=== PATIENT | male | born 1960 | race Caucasian/White ===

== ENCOUNTER 2018-05-14 13:20 | Outpatient (CLI) | payer OTHER ==
[2018-05-14 14:05] LABS: BASOPHILS # (AUTO) 0.1 K/uL (0.00-0.22); EOSINOPHILS # (AUTO) 0.2 K/uL (0-0.4); EOSINOPHILS % (AUTO) 2.4 % (0.0-4.0); HEMATOCRIT 46.7 % (36-52); HEMOGLOBIN 15.8 g/dL (12.0-18.0); LYMPHOCYTES # (AUTO) 1.8 K/uL (2.0-11.5); LYMPHOCYTES % (AUTO) 21.1 % (20.5-51.1); MEAN CORPUSCULAR HEMOGLOBIN 27 pg (27-31); MEAN CORPUSCULAR HGB CONC 34 g/dL (33-37); MEAN CORPUSCULAR VOLUME 80.6 fL (80-94); MONOCYTES # (AUTO) 0.4 K/uL (0.8-1.0); MONOCYTES % (AUTO) 4.2 % (1.7-9.3); NEUTROPHILS # (AUTO) 6.1 K/uL (1.8-7.7); NEUTROPHILS % (AUTO) 71.3 % (42.2-75.2); PLATELET COUNT (AUTO) 269 K/uL (140-450); RED BLOOD CELL COUNT(AUTO) 5.79 MIL/uL (4.20-6.10); RED CELL DISTRIBUTION WIDTH 13.7 % (11.6-13.7); WHITE BLOOD COUNT (AUTO) 8.6 K/uL (4.8-10.8)
[2018-05-14 14:36] LABS: ALBUMIN 3.8 g/dL (3.4-5.0); ANION GAP 12.9 (8-16); CARBON DIOXIDE 27.2 mmol/L (21-32); CREATININE 0.9 mg/dL (0.7-1.3); POTASSIUM 4.1 mmol/L (3.5-5.1); TOTAL BILIRUBIN 1.1 mg/dL (0.0-1.0)
[2018-05-14 15:16] LABS: CHOL/HDL RATIO 6.1 (1-4.5)
== END 2018-05-14 19:49 | disposition home or self-care (01) ==
LOC: MLB 13:20
PROVIDERS: ATTEND Student in an Organized Health Care Education/Training Program
DX: Z00.01 Encounter for general adult medical examination with abnormal findings (principal); E11.9 Type 2 diabetes mellitus without complications; R03.0 Elevated blood-pressure reading, without diagnosis of hypertension
CPT/HCPCS: 36415; 80053; 83036; 85025

== ENCOUNTER 2018-07-26 13:53 | Inpatient (IN) | payer OTHER ==
[~2018-07-26] VITALS: Ht 177.8 cm; Wt 93.0 kg
[2018-07-26 13:53] VITALS: BP 175/109
[2018-07-26 14:30] LABS: BASOPHILS # (AUTO) 0.1 K/uL (0.00-0.22); BASOPHILS % (AUTO) 0.8 % (0.0-2.0); EOSINOPHILS # (AUTO) 0.1 K/uL (0-0.4); HEMATOCRIT 46.3 % (36-52); HEMOGLOBIN 15.6 g/dL (12.0-18.0); LYMPHOCYTES # (AUTO) 1.5 K/uL (2.0-11.5); LYMPHOCYTES % (AUTO) 14.4 % (20.5-51.1); MEAN CORPUSCULAR HEMOGLOBIN 27 pg (27-31); MEAN CORPUSCULAR HGB CONC 34 g/dL (33-37); MEAN CORPUSCULAR VOLUME 80.5 fL (80-94); MONOCYTES # (AUTO) 0.6 K/uL (0.8-1.0); MONOCYTES % (AUTO) 5.8 % (1.7-9.3); NEUTROPHILS # (AUTO) 8.1 K/uL (1.8-7.7); PLATELET COUNT (AUTO) 245 K/uL (140-450); RED BLOOD CELL COUNT(AUTO) 5.75 MIL/uL (4.20-6.10); RED CELL DISTRIBUTION WIDTH 13.4 % (11.6-13.7); WHITE BLOOD COUNT (AUTO) 10.4 K/uL (4.8-10.8)
[2018-07-26] MEDS ORDERED: ASPIRIN 325 MG TABEC PO SCH (14:50)
[2018-07-26 14:57] LABS: ANION GAP 13.7 (8-16); CARBON DIOXIDE 26.3 mmol/L (21-32)
[2018-07-26 15:02] LABS: ALBUMIN 3.6 g/dL (3.4-5.0); TOTAL BILIRUBIN 1.2 mg/dL (0.0-1.0)
[2018-07-26 15:05] LABS: APPEARANCE,URINE CLEAR (CLEAR); BILIRUBIN,URINE NEGATIVE (NEGATIVE); BLOOD, URINE NEGATIVE (NEGATIVE); COLOR,URINE YELLOW (YELLOW); LEUKOCYTE ESTERASE ,URINE NEGATIVE (NEGATIVE); NITRITE, URINE NEGATIVE (NEGATIVE); UGLUCOSE >=1000 (NEGATIVE)
[2018-07-26 15:07] LABS: PROTHROMBIN TIME 9.9 secs (10.8-13.4)
[2018-07-26 15:53] LABS: BARBITURATE, URINE NEG. ng/ml (NEG <=200); BENZODIAZEPINE, URINE NEG. ng/mL (NEG <=200); CANNABINOID, URINE NEG. ng/mL (NEG <=50); COCAINE, URINE NEG. ng/mL (NEG <=300); OPIATE, URINE NEG. ng/mL (NEG <=2000); PHENCYCLIDINE SCREEN,URINE NEG. ng/mL (NEG <=25)
[2018-07-26] MEDS ORDERED: METF500T PO (16:41)
[2018-07-26] MEDS ORDERED: LOSA100T1 PO (16:41)
[2018-07-26 17:10] VITALS: BP 162/88
[2018-07-26] MEDS ORDERED: ONDANSETRON 4 MG/2 ML VIAL IVP PRN (17:20)
[2018-07-26] MEDS ORDERED: HYDROmorphone 1 MG/ML AMP IM/IV PRN (17:20)
[2018-07-26] MEDS ORDERED: ACETAMINOPHEN 650 MG/20.3 ML UDC PO PRN (17:20)
[2018-07-26] MEDS ORDERED: LORazepam 2 MG/ML VIAL IM/IVP PRN (17:20)
[2018-07-26] MEDS ORDERED: ZOLPIDEM 5 MG TAB PO PRN (17:20)
[2018-07-26] MEDS ORDERED: DEXTROSE 50% 50 ML SYR IVP PRN (18:10)
[2018-07-26 20:25] VITALS: BP 158/89
[2018-07-26] MEDS: INSULIN LISPRO SLIDING SCALE 100 UNITS/ML VIAL SUBQ PRN (21:34)
[2018-07-26] MEDS: BLOOD GLUCOSE MONITORING 1 DEV DEV FS SCH (21:38)
[2018-07-27 00:36] VITALS: BP 147/83
[2018-07-27 04:00] VITALS: BP 141/84
[2018-07-27] MEDS: BLOOD GLUCOSE MONITORING 1 DEV DEV FS SCH ×2 (05:53→11:30)
[2018-07-27] MEDS: INSULIN LISPRO SLIDING SCALE 100 UNITS/ML VIAL SUBQ PRN (06:00)
[2018-07-27 11:31] VITALS: BP 154/86
== END 2018-07-27 11:58 | disposition short-term general hospital (02) | DRG 66 ==
LOC: MED 13:53 → MTU 16:49 → UNDOADMIN 16:49
PROVIDERS: ADMIT Internal Medicine; ATTEND Internal Medicine
DX: I63.9 Cerebral infarction, unspecified (principal); E78.5 Hyperlipidemia, unspecified; I10 Essential (primary) hypertension; E11.65 Type 2 diabetes mellitus with hyperglycemia; E11.40 Type 2 diabetes mellitus with diabetic neuropathy, unspecified; R47.01 Aphasia; Z79.84 Long term (current) use of oral hypoglycemic drugs; Z79.899 Other long term (current) drug therapy
CPT/HCPCS: 36415; 70450; 71045; 80053; 80305; 81003; 82140; 82948; 84484; 85025; 85610; 85730; 86886; 86900; 86901; 87081; 93005; 93880; 99285; J1815; Q0092

== ENCOUNTER 2018-09-17 09:47 | Outpatient (CLI) | payer OTHER ==
[~2018-09-17 09:47] MED LIST: LOSA100T1 PO; METF500T PO
[2018-09-17 11:38] LABS: ANION GAP 16.7 (8-16); CARBON DIOXIDE 26.5 mmol/L (21-32); CREATININE 0.9 mg/dL (0.7-1.3); POTASSIUM 4.2 mmol/L (3.5-5.1); TOTAL BILIRUBIN 1.2 mg/dL (0.0-1.0)
[2018-09-17 11:39] LABS: ALBUMIN 3.5 g/dL (3.4-5.0)
== END 2018-09-17 21:19 | disposition home or self-care (01) ==
LOC: MLB 09:47
PROVIDERS: ATTEND Family Medicine
DX: E11.65 Type 2 diabetes mellitus with hyperglycemia (principal); E78.00 Pure hypercholesterolemia, unspecified; I10 Essential (primary) hypertension; I63.9 Cerebral infarction, unspecified
CPT/HCPCS: 36415; 80053; 83036

== ENCOUNTER 2018-10-24 10:26 | Outpatient (CLI) | payer OTHER ==
[2018-10-24 11:34] LABS: BASOPHILS # (AUTO) 0.1 K/uL (0.00-0.22); BASOPHILS % (AUTO) 0.7 % (0.0-2.0); EOSINOPHILS # (AUTO) 0.2 K/uL (0-0.4); EOSINOPHILS % (AUTO) 1.3 % (0.0-4.0); HEMATOCRIT 39.5 % (36-52); HEMOGLOBIN 12.7 g/dL (12.0-18.0); LYMPHOCYTES # (AUTO) 1.9 K/uL (2.0-11.5); LYMPHOCYTES % (AUTO) 13.3 % (20.5-51.1); MEAN CORPUSCULAR HEMOGLOBIN 25 pg (27-31); MEAN CORPUSCULAR HGB CONC 32 g/dL (33-37); MEAN CORPUSCULAR VOLUME 78.8 fL (80-94); MONOCYTES # (AUTO) 1.1 K/uL (0.8-1.0); MONOCYTES % (AUTO) 7.9 % (1.7-9.3); NEUTROPHILS # (AUTO) 10.7 K/uL (1.8-7.7); NEUTROPHILS % (AUTO) 76.8 % (42.2-75.2); PLATELET COUNT (AUTO) 511 K/uL (140-450); RED BLOOD CELL COUNT(AUTO) 5.02 MIL/uL (4.20-6.10); RED CELL DISTRIBUTION WIDTH 13.8 % (11.6-13.7)
[2018-10-24 11:39] LABS: APPEARANCE,URINE CLEAR (CLEAR); BILIRUBIN,URINE NEGATIVE (NEGATIVE); BLOOD, URINE NEGATIVE (NEGATIVE); COLOR,URINE YELLOW (YELLOW); LEUKOCYTE ESTERASE ,URINE NEGATIVE (NEGATIVE); NITRITE, URINE NEGATIVE (NEGATIVE); UGLUCOSE NEGATIVE (NEGATIVE)
[2018-10-24 11:55] LABS: ALBUMIN 3.4 g/dL (3.4-5.0); ANION GAP 9.7 (8-16); CARBON DIOXIDE 28.4 mmol/L (21-32); CHOL/HDL RATIO 3.8 (1-4.5); CREATININE 0.9 mg/dL (0.7-1.3); POTASSIUM 4.1 mmol/L (3.5-5.1)
[2018-10-25 09:06] LABS: MICROALBUMIN, UR RANDOM 32.2 ug/mL (Not Estab.)
== END 2018-10-24 17:42 | disposition home or self-care (01) ==
LOC: MLB 10:26
DX: E11.69 Type 2 diabetes mellitus with other specified complication (principal); I10 Essential (primary) hypertension; Z86.73 Personal history of transient ischemic attack (TIA), and cerebral infarction without residual deficits
CPT/HCPCS: 36415; 80053; 81003; 82043; 83036; 84154; 85025

== ENCOUNTER 2018-11-06 15:18 | Outpatient (CLI) | payer OTHER ==
[2018-11-06 15:59] LABS: HEMATOCRIT 38.1 % (36-52); HEMOGLOBIN 12.1 g/dL (12.0-18.0); MEAN CORPUSCULAR HEMOGLOBIN 25 pg (27-31); MEAN CORPUSCULAR HGB CONC 32 g/dL (33-37); MEAN CORPUSCULAR VOLUME 77.9 fL (80-94); PLATELET COUNT (AUTO) 507 K/uL (140-450); RED BLOOD CELL COUNT(AUTO) 4.89 MIL/uL (4.20-6.10); RED CELL DISTRIBUTION WIDTH 14.2 % (11.6-13.7); WHITE BLOOD COUNT (AUTO) 12.6 K/uL (4.8-10.8)
[2018-11-06 16:22] LABS: ALBUMIN 3.6 g/dL (3.4-5.0); ANION GAP 15.6 (8-16); CARBON DIOXIDE 26.3 mmol/L (21-32); CREATININE 0.8 mg/dL (0.7-1.3); POTASSIUM 3.9 mmol/L (3.5-5.1); TOTAL BILIRUBIN 0.7 mg/dL (0.0-1.0)
[2018-11-06 17:31] LABS: BASOPHILS % (MANUAL) 0 % (0-2); EOSINOPHILS % (MANUAL) 0 % (0-4); LYMPHOCYTES % (MANUAL) 16 % (20-46); MONOCYTES % (MANUAL) 6 % (5-12); PLATELET COUNT,MANUAL 510 K/uL (150-450)
[2018-11-09 17:38] LABS: HEPATITIS B SURFACE ANTIBODY NON REACTIVE (NONREACTIVE)
[2018-11-09 17:39] LABS: ALDOLASE SERUM 4.5 U/L (1.2 - 7.6)
[2018-11-09 17:40] LABS: ANTI-NUCLEAR ANTIBODY,DIRECT Positive (Negative)
[2018-11-11 09:52] LABS: HEPATITIS B SURFACE ANTIGEN NEGATIVE (NEGATIVE)
== END 2018-11-06 20:44 | disposition home or self-care (01) ==
LOC: MLB 15:18
DX: M19.011 Primary osteoarthritis, right shoulder (principal); M19.012 Primary osteoarthritis, left shoulder; M79.89 Other specified soft tissue disorders; M17.12 Unilateral primary osteoarthritis, left knee; M79.642 Pain in left hand; M79.641 Pain in right hand; M79.18 Myalgia, other site; I10 Essential (primary) hypertension; E11.9 Type 2 diabetes mellitus without complications
CPT/HCPCS: 36415; 73020; 73080; 73130; 73562; 80053; 82085; 82550; 83520; 83874; 84550; 85025; 85651; 86038; 86140; 86430; 86702; 86706; 86803; 87340

== ENCOUNTER 2018-12-02 12:28 | Outpatient (CLI) | payer OTHER ==
[2018-12-02 13:27] LABS: BASOPHILS # (AUTO) 0.1 K/uL (0.00-0.22); BASOPHILS % (AUTO) 0.6 % (0.0-2.0); EOSINOPHILS # (AUTO) 0.2 K/uL (0-0.4); EOSINOPHILS % (AUTO) 2.3 % (0.0-4.0); HEMATOCRIT 35.2 % (36-52); HEMOGLOBIN 11.3 g/dL (12.0-18.0); LYMPHOCYTES # (AUTO) 1.5 K/uL (2.0-11.5); MEAN CORPUSCULAR HEMOGLOBIN 25 pg (27-31); MEAN CORPUSCULAR HGB CONC 32 g/dL (33-37); MEAN CORPUSCULAR VOLUME 77.4 fL (80-94); MONOCYTES # (AUTO) 0.6 K/uL (0.8-1.0); MONOCYTES % (AUTO) 6.9 % (1.7-9.3); NEUTROPHILS # (AUTO) 6.8 K/uL (1.8-7.7); NEUTROPHILS % (AUTO) 74.2 % (42.2-75.2); PLATELET COUNT (AUTO) 363 K/uL (140-450); RED BLOOD CELL COUNT(AUTO) 4.55 MIL/uL (4.20-6.10); RED CELL DISTRIBUTION WIDTH 15.6 % (11.6-13.7); WHITE BLOOD COUNT (AUTO) 9.1 K/uL (4.8-10.8)
[2018-12-02 13:50] LABS: ALBUMIN 3.4 g/dL (3.4-5.0); CARBON DIOXIDE 26.1 mmol/L (21-32); CREATININE 0.8 mg/dL (0.7-1.3); POTASSIUM 4.1 mmol/L (3.5-5.1); THYROID STIMULATING HORMONE 1.68 uIU/mL (0.34-3.74); TOTAL BILIRUBIN 0.6 mg/dL (0.0-1.0)
[2018-12-03 11:09] LABS: FERRITIN 395 ng/mL (30-400); IMMUNOGLOBULIN A 247 mg/dL (90-386); IMMUNOGLOBULIN G 1259 mg/dL (700-1600); IMMUNOGLOBULIN M 54 mg/dL (20-172)
== END 2018-12-02 20:38 | disposition home or self-care (01) ==
LOC: MLB 12:28
DX: D47.3 Essential (hemorrhagic) thrombocythemia (principal); D72.829 Elevated white blood cell count, unspecified
CPT/HCPCS: 36415; 80053; 82607; 82728; 82746; 83540; 83891; 83900; 83909; 83912; 84165; 84443; 85025; 86334

== ENCOUNTER → 2018-12-13 | Outpatient (CLI) | payer OTHER ==
[2018-12-15 17:56] LABS: BASOPHILS # (AUTO) 0.1 K/uL (0.00-0.22); BASOPHILS % (AUTO) 0.6 % (0.0-2.0); EOSINOPHILS % (AUTO) 0.1 % (0.0-4.0); HEMATOCRIT 36.6 % (36-52); HEMOGLOBIN 11.9 g/dL (12.0-18.0); LYMPHOCYTES % (AUTO) 7.8 % (20.5-51.1); MEAN CORPUSCULAR HEMOGLOBIN 25 pg (27-31); MEAN CORPUSCULAR HGB CONC 33 g/dL (33-37); MEAN CORPUSCULAR VOLUME 76.7 fL (80-94); MONOCYTES # (AUTO) 0.4 K/uL (0.8-1.0); MONOCYTES % (AUTO) 2.9 % (1.7-9.3); NEUTROPHILS # (AUTO) 11.6 K/uL (1.8-7.7); NEUTROPHILS % (AUTO) 88.6 % (42.2-75.2); PLATELET COUNT (AUTO) 460 K/uL (140-450); RED BLOOD CELL COUNT(AUTO) 4.77 MIL/uL (4.20-6.10); WHITE BLOOD COUNT (AUTO) 13.1 K/uL (4.8-10.8)
[2018-12-15 18:09] LABS: ALBUMIN 3.7 g/dL (3.4-5.0); CARBON DIOXIDE 25.1 mmol/L (21-32); CREATININE 0.9 mg/dL (0.7-1.3); POTASSIUM 4.1 mmol/L (3.5-5.1); TOTAL BILIRUBIN 0.6 mg/dL (0.0-1.0)
[2018-12-23 11:02] LABS: HEPATITIS B SURFACE ANTIGEN NEGATIVE (NEGATIVE)
[2018-12-23 11:03] LABS: ACTIN(SMOOTH MUSCLE) AB 12 Units (0 - 19); ANTI DOUBLE STRANDED DNA AB 22 IU/mL (0 - 9); HEPATITIS B SURFACE ANTIBODY NON REACTIVE (NONREACTIVE)
== END | disposition home or self-care (01) ==
LOC: MLB 13:40
DX: M19.90 Unspecified osteoarthritis, unspecified site (principal)
CPT/HCPCS: 36415; 80053; 83516; 83520; 85025; 85651; 86140; 86160; 86235; 86430; 86706; 86803; 87340

== ENCOUNTER 2018-12-15 17:01 | Outpatient (CLI) | payer OTHER | END 2018-12-15 19:59 | disposition home or self-care (01) | LOC: CANPRECLI → MRD 17:01 | DX: Z53.21 Procedure and treatment not carried out due to patient leaving prior to being seen by health care provider (principal) ==

== ENCOUNTER 2019-02-04 13:02 | Outpatient (CLI) | payer OTHER ==
[2019-02-04 13:53] LABS: BASOPHILS # (AUTO) 0.1 K/uL (0.00-0.22); BASOPHILS % (AUTO) 0.5 % (0.0-2.0); EOSINOPHILS % (AUTO) 0.3 % (0.0-4.0); HEMATOCRIT 41.4 % (36-52); HEMOGLOBIN 13.4 g/dL (12.0-18.0); LYMPHOCYTES # (AUTO) 0.9 K/uL (2.0-11.5); LYMPHOCYTES % (AUTO) 7.7 % (20.5-51.1); MEAN CORPUSCULAR HEMOGLOBIN 26 pg (27-31); MEAN CORPUSCULAR HGB CONC 32 g/dL (33-37); MEAN CORPUSCULAR VOLUME 80.5 fL (80-94); MONOCYTES # (AUTO) 0.5 K/uL (0.8-1.0); NEUTROPHILS # (AUTO) 10.1 K/uL (1.8-7.7); NEUTROPHILS % (AUTO) 87.5 % (42.2-75.2); PLATELET COUNT (AUTO) 290 K/uL (140-450); RED BLOOD CELL COUNT(AUTO) 5.14 MIL/uL (4.20-6.10); RED CELL DISTRIBUTION WIDTH 17.7 % (11.6-13.7); WHITE BLOOD COUNT (AUTO) 11.6 K/uL (4.8-10.8)
[2019-02-04 14:18] LABS: ALBUMIN 3.8 g/dL (3.4-5.0); ANION GAP 14.7 (8-16); CARBON DIOXIDE 25.5 mmol/L (21-32); CREATININE 0.9 mg/dL (0.7-1.3); POTASSIUM 4.2 mmol/L (3.5-5.1); TOTAL BILIRUBIN 0.9 mg/dL (0.0-1.0)
== END 2019-02-04 20:14 | disposition home or self-care (01) ==
LOC: MLB 13:02
DX: D50.8 Other iron deficiency anemias (principal); D72.829 Elevated white blood cell count, unspecified
CPT/HCPCS: 36415; 80053; 82728; 83540; 85025

== ENCOUNTER 2019-02-24 11:59 | Outpatient (CLI) | payer OTHER ==
[2019-02-24 12:53] LABS: POTASSIUM 3.8 mmol/L (3.5-5.1)
[2019-02-24 12:54] LABS: CARBON DIOXIDE 27.8 mmol/L (21-32); CREATININE 0.9 mg/dL (0.7-1.3); TOTAL BILIRUBIN 0.7 mg/dL (0.0-1.0)
[2019-02-24 12:55] LABS: ALBUMIN 3.7 g/dL (3.4-5.0)
[2019-02-24 15:59] LABS: WHITE BLOOD COUNT (AUTO) 8.9 K/uL (4.8-10.8)
[2019-02-24 16:00] LABS: HEMATOCRIT 41.2 % (36-52); HEMOGLOBIN 13.5 g/dL (12.0-18.0); MEAN CORPUSCULAR HEMOGLOBIN 27 pg (27-31); MEAN CORPUSCULAR HGB CONC 33 g/dL (33-37); PLATELET COUNT (AUTO) 316 K/uL (140-450); RED BLOOD CELL COUNT(AUTO) 5.09 MIL/uL (4.20-6.10)
[2019-02-24 16:01] LABS: BASOPHILS # (AUTO) 0.1 K/uL (0.00-0.22); BASOPHILS % (AUTO) 0.6 % (0.0-2.0); EOSINOPHILS # (AUTO) 0.1 K/uL (0-0.4); LYMPHOCYTES # (AUTO) 1.6 K/uL (2.0-11.5); LYMPHOCYTES % (AUTO) 17.6 % (20.5-51.1); MONOCYTES # (AUTO) 0.5 K/uL (0.8-1.0); MONOCYTES % (AUTO) 5.8 % (1.7-9.3); NEUTROPHILS # (AUTO) 6.7 K/uL (1.8-7.7)
== END 2019-02-24 20:12 | disposition home or self-care (01) ==
LOC: MLB 11:59
DX: M19.019 Primary osteoarthritis, unspecified shoulder (principal)
CPT/HCPCS: 36415; 80053; 85025; 85651; 86140

== ENCOUNTER 2019-03-31 10:50 | Outpatient (CLI) | payer OTHER ==
[2019-03-31 12:02] LABS: BASOPHILS % (AUTO) 0.5 % (0.0-2.0); EOSINOPHILS # (AUTO) 0.1 K/uL (0-0.4); EOSINOPHILS % (AUTO) 1.5 % (0.0-4.0); HEMATOCRIT 41.5 % (36-52); HEMOGLOBIN 13.9 g/dL (12.0-18.0); LYMPHOCYTES # (AUTO) 1.9 K/uL (2.0-11.5); LYMPHOCYTES % (AUTO) 23.2 % (20.5-51.1); MEAN CORPUSCULAR HEMOGLOBIN 28 pg (27-31); MEAN CORPUSCULAR HGB CONC 33 g/dL (33-37); MEAN CORPUSCULAR VOLUME 83.1 fL (80-94); MONOCYTES # (AUTO) 0.6 K/uL (0.8-1.0); MONOCYTES % (AUTO) 6.9 % (1.7-9.3); NEUTROPHILS # (AUTO) 5.5 K/uL (1.8-7.7); NEUTROPHILS % (AUTO) 67.9 % (42.2-75.2); PLATELET COUNT (AUTO) 281 K/uL (140-450); RED CELL DISTRIBUTION WIDTH 16.4 % (11.6-13.7); WHITE BLOOD COUNT (AUTO) 8.1 K/uL (4.8-10.8)
[2019-03-31 16:04] LABS: CHOL/HDL RATIO 4.3 (1-4.5)
[2019-04-01 09:30] LABS: MICROALBUMIN, UR RANDOM 4.2 ug/mL (Not Estab.)
== END 2019-03-31 20:52 | disposition home or self-care (01) ==
LOC: MLB 10:50
DX: E78.5 Hyperlipidemia, unspecified (principal); E11.9 Type 2 diabetes mellitus without complications; M06.9 Rheumatoid arthritis, unspecified
CPT/HCPCS: 36415; 82043; 83036; 83540; 85025

== ENCOUNTER 2019-05-01 10:23 | Outpatient (CLI) | payer OTHER ==
[2019-05-01 10:56] LABS: BASOPHILS # (AUTO) 0.1 K/uL (0.00-0.22); EOSINOPHILS # (AUTO) 0.2 K/uL (0-0.4); HEMATOCRIT 40.4 % (36-52); HEMOGLOBIN 13.6 g/dL (12.0-18.0); LYMPHOCYTES # (AUTO) 2.1 K/uL (2.0-11.5); LYMPHOCYTES % (AUTO) 20.4 % (20.5-51.1); MEAN CORPUSCULAR HEMOGLOBIN 28 pg (27-31); MEAN CORPUSCULAR HGB CONC 34 g/dL (33-37); MEAN CORPUSCULAR VOLUME 83.1 fL (80-94); MONOCYTES # (AUTO) 0.6 K/uL (0.8-1.0); MONOCYTES % (AUTO) 5.8 % (1.7-9.3); NEUTROPHILS # (AUTO) 7.3 K/uL (1.8-7.7); NEUTROPHILS % (AUTO) 70.8 % (42.2-75.2); PLATELET COUNT (AUTO) 264 K/uL (140-450); RED BLOOD CELL COUNT(AUTO) 4.86 MIL/uL (4.20-6.10); RED CELL DISTRIBUTION WIDTH 15.3 % (11.6-13.7); WHITE BLOOD COUNT (AUTO) 10.3 K/uL (4.8-10.8)
[2019-05-01 11:08] LABS: ALBUMIN 3.8 g/dL (3.4-5.0); CARBON DIOXIDE 29.6 mmol/L (21-32); CREATININE 0.9 mg/dL (0.7-1.3); POTASSIUM 3.6 mmol/L (3.5-5.1); TOTAL BILIRUBIN 1.3 mg/dL (0.0-1.0)
== END 2019-05-01 20:18 | disposition home or self-care (01) ==
LOC: MLB 10:23
DX: M06.00 Rheumatoid arthritis without rheumatoid factor, unspecified site (principal)
CPT/HCPCS: 36415; 80053; 85025; 85651; 86140

== ENCOUNTER 2019-07-01 12:15 | Outpatient (CLI) | payer OTHER ==
[2019-07-01 13:24] LABS: BASOPHILS # (AUTO) 0.1 K/uL (0.00-0.22); BASOPHILS % (AUTO) 0.7 % (0.0-2.0); EOSINOPHILS % (AUTO) 0.3 % (0.0-4.0); HEMATOCRIT 44.1 % (36-52); HEMOGLOBIN 14.6 g/dL (12.0-18.0); LYMPHOCYTES # (AUTO) 1.9 K/uL (2.0-11.5); LYMPHOCYTES % (AUTO) 18.8 % (20.5-51.1); MEAN CORPUSCULAR HEMOGLOBIN 28 pg (27-31); MEAN CORPUSCULAR HGB CONC 33 g/dL (33-37); MEAN CORPUSCULAR VOLUME 85.7 fL (80-94); MONOCYTES # (AUTO) 0.5 K/uL (0.8-1.0); MONOCYTES % (AUTO) 4.8 % (1.7-9.3); NEUTROPHILS # (AUTO) 7.7 K/uL (1.8-7.7); NEUTROPHILS % (AUTO) 75.4 % (42.2-75.2); PLATELET COUNT (AUTO) 255 K/uL (140-450); RED BLOOD CELL COUNT(AUTO) 5.14 MIL/uL (4.20-6.10); RED CELL DISTRIBUTION WIDTH 14.4 % (11.6-13.7); WHITE BLOOD COUNT (AUTO) 10.2 K/uL (4.8-10.8)
[2019-07-01 13:36] LABS: ALBUMIN 3.7 g/dL (3.4-5.0); ANION GAP 12.7 (8-16); CARBON DIOXIDE 26.5 mmol/L (21-32); CREATININE 0.8 mg/dL (0.7-1.3); POTASSIUM 4.2 mmol/L (3.5-5.1); TOTAL BILIRUBIN 1.6 mg/dL (0.0-1.0)
== END 2019-07-01 20:19 | disposition home or self-care (01) ==
LOC: MLB 12:15
DX: M06.00 Rheumatoid arthritis without rheumatoid factor, unspecified site (principal); M19.90 Unspecified osteoarthritis, unspecified site
CPT/HCPCS: 36415; 80053; 85025; 85651; 86140

== ENCOUNTER 2019-07-06 12:04 | Outpatient (CLI) | payer OTHER ==
[2019-07-06 13:10] LABS: ALBUMIN 3.7 g/dL (3.4-5.0); CHOL/HDL RATIO 3.2 (1-4.5); CREATININE 0.9 mg/dL (0.7-1.3); POTASSIUM 4.1 mmol/L (3.5-5.1); TOTAL BILIRUBIN 1.5 mg/dL (0.0-1.0)
[2019-07-06 13:33] LABS: ANION GAP 16.9 (8-16); CARBON DIOXIDE 25.2 mmol/L (21-32)
== END 2019-07-06 20:21 | disposition home or self-care (01) ==
LOC: MLB 12:04
DX: E78.5 Hyperlipidemia, unspecified (principal)
CPT/HCPCS: 36415; 80053

== ENCOUNTER 2019-08-11 11:02 | Outpatient (CLI) | payer OTHER ==
[2019-08-11 11:46] LABS: BASOPHILS # (AUTO) 0.1 K/uL (0.00-0.22); BASOPHILS % (AUTO) 0.9 % (0.0-2.0); EOSINOPHILS # (AUTO) 0.4 K/uL (0-0.4); EOSINOPHILS % (AUTO) 4.1 % (0.0-4.0); HEMATOCRIT 40.8 % (36-52); HEMOGLOBIN 13.5 g/dL (12.0-18.0); LYMPHOCYTES # (AUTO) 1.7 K/uL (2.0-11.5); LYMPHOCYTES % (AUTO) 19.7 % (20.5-51.1); MEAN CORPUSCULAR HEMOGLOBIN 28 pg (27-31); MEAN CORPUSCULAR HGB CONC 33 g/dL (33-37); MEAN CORPUSCULAR VOLUME 85.3 fL (80-94); MONOCYTES # (AUTO) 0.6 K/uL (0.8-1.0); MONOCYTES % (AUTO) 7.2 % (1.7-9.3); NEUTROPHILS # (AUTO) 5.8 K/uL (1.8-7.7); NEUTROPHILS % (AUTO) 68.1 % (42.2-75.2); PLATELET COUNT (AUTO) 277 K/uL (140-450); RED BLOOD CELL COUNT(AUTO) 4.79 MIL/uL (4.20-6.10); WHITE BLOOD COUNT (AUTO) 8.5 K/uL (4.8-10.8)
[2019-08-11 12:07] LABS: ALBUMIN 3.7 g/dL (3.4-5.0); ANION GAP 13.8 (8-16); CARBON DIOXIDE 28.6 mmol/L (21-32); CREATININE 0.8 mg/dL (0.7-1.3); POTASSIUM 4.4 mmol/L (3.5-5.1); TOTAL BILIRUBIN 1.4 mg/dL (0.0-1.0)
== END 2019-08-11 20:55 | disposition home or self-care (01) ==
LOC: MLB 11:02
DX: D72.829 Elevated white blood cell count, unspecified (principal); D50.8 Other iron deficiency anemias; E11.9 Type 2 diabetes mellitus without complications; I10 Essential (primary) hypertension
CPT/HCPCS: 36415; 80053; 85025

== ENCOUNTER 2019-11-04 10:52 | Outpatient (CLI) | payer OTHER ==
[2019-11-04 11:30] LABS: BASOPHILS # (AUTO) 0.1 K/uL (0.00-0.22); BASOPHILS % (AUTO) 1.9 % (0.0-2.0); EOSINOPHILS # (AUTO) 0.4 K/uL (0-0.4); EOSINOPHILS % (AUTO) 4.9 % (0.0-4.0); HEMATOCRIT 40.8 % (36-52); HEMOGLOBIN 13.8 g/dL (12.0-18.0); LYMPHOCYTES # (AUTO) 1.4 K/uL (2.0-11.5); LYMPHOCYTES % (AUTO) 18.9 % (20.5-51.1); MEAN CORPUSCULAR HEMOGLOBIN 28 pg (27-31); MEAN CORPUSCULAR HGB CONC 34 g/dL (33-37); MEAN CORPUSCULAR VOLUME 82.5 fL (80-94); MONOCYTES # (AUTO) 0.4 K/uL (0.8-1.0); MONOCYTES % (AUTO) 5.3 % (1.7-9.3); NEUTROPHILS # (AUTO) 5.1 K/uL (1.8-7.7); PLATELET COUNT (AUTO) 267 K/uL (140-450); RED BLOOD CELL COUNT(AUTO) 4.95 MIL/uL (4.20-6.10); WHITE BLOOD COUNT (AUTO) 7.5 K/uL (4.8-10.8)
[2019-11-04 11:53] LABS: ANION GAP 11.7 (8-16); CARBON DIOXIDE 28.3 mmol/L (21-32); CREATININE 0.8 mg/dL (0.6-1.3); TOTAL BILIRUBIN 1.4 mg/dL (0.0-1.0)
[2019-11-04 13:03] LABS: ALBUMIN 3.9 g/dL (3.4-5.0)
== END 2019-11-04 20:20 | disposition home or self-care (01) ==
LOC: MLB 10:52
DX: M06.00 Rheumatoid arthritis without rheumatoid factor, unspecified site (principal)
CPT/HCPCS: 36415; 80053; 82306; 85025; 85651; 86140

== ENCOUNTER 2019-12-02 11:56 | Outpatient (CLI) | payer OTHER | END 2019-12-02 21:57 | disposition home or self-care (01) | LOC: MDS 11:56 | DX: E11.9 Type 2 diabetes mellitus without complications (principal) | CPT/HCPCS: 36415; 83036 ==

== ENCOUNTER 2020-02-03 15:23 | Outpatient (CLI) | payer OTHER ==
[2020-02-03 16:34] LABS: BASOPHILS # (AUTO) 0.1 K/uL (0.00-0.22); BASOPHILS % (AUTO) 0.7 % (0.0-2.0); EOSINOPHILS # (AUTO) 0.3 K/uL (0-0.4); EOSINOPHILS % (AUTO) 3.2 % (0.0-4.0); HEMATOCRIT 41.3 % (36-52); HEMOGLOBIN 13.7 g/dL (12.0-18.0); LYMPHOCYTES # (AUTO) 1.9 K/uL (2.0-11.5); LYMPHOCYTES % (AUTO) 22.1 % (20.5-51.1); MEAN CORPUSCULAR HEMOGLOBIN 28 pg (27-31); MEAN CORPUSCULAR HGB CONC 33 g/dL (33-37); MEAN CORPUSCULAR VOLUME 84.1 fL (80-94); MONOCYTES # (AUTO) 0.6 K/uL (0.8-1.0); MONOCYTES % (AUTO) 6.7 % (1.7-9.3); NEUTROPHILS # (AUTO) 5.7 K/uL (1.8-7.7); NEUTROPHILS % (AUTO) 67.3 % (42.2-75.2); PLATELET COUNT (AUTO) 276 K/uL (140-450); RED BLOOD CELL COUNT(AUTO) 4.92 MIL/uL (4.20-6.10); RED CELL DISTRIBUTION WIDTH 14.9 % (11.6-13.7); WHITE BLOOD COUNT (AUTO) 8.4 K/uL (4.8-10.8)
[2020-02-03 16:50] LABS: ALBUMIN 3.9 g/dL (3.4-5.0); ANION GAP 10.7 (8-16); CARBON DIOXIDE 29.4 mmol/L (21-32); POTASSIUM 4.1 mmol/L (3.5-5.1); TOTAL BILIRUBIN 1.4 mg/dL (0.0-1.0)
== END 2020-02-03 20:12 | disposition home or self-care (01) ==
LOC: MLB 15:23
DX: M05.9 Rheumatoid arthritis with rheumatoid factor, unspecified (principal); M06.9 Rheumatoid arthritis, unspecified; E53.9 Vitamin B deficiency, unspecified; Z79.899 Other long term (current) drug therapy
CPT/HCPCS: 36415; 80053; 82306; 85025; 85651; 86140

== ENCOUNTER 2020-10-28 09:53 | Outpatient (CLI) | payer OTHER ==
[2020-10-28 10:17] LABS: BASOPHILS # (AUTO) 0.1 K/uL (0.00-0.22); BASOPHILS % (AUTO) 1.1 % (0.0-2.0); EOSINOPHILS # (AUTO) 0.4 K/uL (0-0.4); EOSINOPHILS % (AUTO) 4.4 % (0.0-4.0); HEMATOCRIT 42.4 % (36-52); HEMOGLOBIN 14.1 g/dL (12.0-18.0); LYMPHOCYTES # (AUTO) 1.4 K/uL (2.0-11.5); LYMPHOCYTES % (AUTO) 16.9 % (20.5-51.1); MEAN CORPUSCULAR HEMOGLOBIN 27 pg (27-31); MEAN CORPUSCULAR HGB CONC 33 g/dL (33-37); MEAN CORPUSCULAR VOLUME 81.3 fL (80-94); MONOCYTES # (AUTO) 0.6 K/uL (0.8-1.0); MONOCYTES % (AUTO) 6.6 % (1.7-9.3); PLATELET COUNT (AUTO) 261 K/uL (140-450); RED BLOOD CELL COUNT(AUTO) 5.21 MIL/uL (4.20-6.10); RED CELL DISTRIBUTION WIDTH 13.4 % (11.6-13.7); WHITE BLOOD COUNT (AUTO) 8.5 K/uL (4.8-10.8)
[2020-10-28 10:32] LABS: APPEARANCE,URINE CLEAR (CLEAR); BILIRUBIN,URINE NEGATIVE (NEGATIVE); BLOOD, URINE NEGATIVE (NEGATIVE); COLOR,URINE YELLOW (YELLOW); LEUKOCYTE ESTERASE ,URINE NEGATIVE (NEGATIVE); NITRITE, URINE NEGATIVE (NEGATIVE); UGLUCOSE NEGATIVE (NEGATIVE)
[2020-10-28 10:39] LABS: ALBUMIN 3.9 g/dL (3.4-5.0); ANION GAP 11.3 (8-16); CARBON DIOXIDE 29.8 mmol/L (21-32); CHOL/HDL RATIO 3.5 (1-4.5); CREATININE 0.9 mg/dL (0.6-1.3); POTASSIUM 4.1 mmol/L (3.5-5.1); TOTAL BILIRUBIN 1.2 mg/dL (0.0-1.0)
[2020-10-29 13:40] LABS: PROSTATE SPEC AG TOTAL 0.3 ng/mL (0.0-4.0)
== END 2020-10-28 20:07 | disposition home or self-care (01) ==
LOC: MLB 09:53
DX: Z00.01 Encounter for general adult medical examination with abnormal findings (principal); I10 Essential (primary) hypertension; E11.69 Type 2 diabetes mellitus with other specified complication; Z68.29 Body mass index [BMI] 29.0-29.9, adult; Z86.73 Personal history of transient ischemic attack (TIA), and cerebral infarction without residual deficits
CPT/HCPCS: 36415; 80053; 81003; 82043; 83036; 84153; 85025; 87522

== ENCOUNTER 2020-11-23 11:15 | Outpatient (CLI) | payer OTHER ==
[2020-11-23 11:48] LABS: BASOPHILS # (AUTO) 0.1 K/uL (0.00-0.22); BASOPHILS % (AUTO) 1.2 % (0.0-2.0); EOSINOPHILS # (AUTO) 0.4 K/uL (0-0.4); EOSINOPHILS % (AUTO) 4.6 % (0.0-4.0); HEMATOCRIT 39.7 % (36-52); HEMOGLOBIN 13.2 g/dL (12.0-18.0); LYMPHOCYTES # (AUTO) 1.8 K/uL (2.0-11.5); LYMPHOCYTES % (AUTO) 19.8 % (20.5-51.1); MEAN CORPUSCULAR HEMOGLOBIN 27 pg (27-31); MEAN CORPUSCULAR HGB CONC 33 g/dL (33-37); MEAN CORPUSCULAR VOLUME 81.1 fL (80-94); MONOCYTES # (AUTO) 0.6 K/uL (0.8-1.0); MONOCYTES % (AUTO) 6.4 % (1.7-9.3); NEUTROPHILS # (AUTO) 6.4 K/uL (1.8-7.7); PLATELET COUNT (AUTO) 267 K/uL (140-450); RED CELL DISTRIBUTION WIDTH 13.8 % (11.6-13.7); WHITE BLOOD COUNT (AUTO) 9.3 K/uL (4.8-10.8)
== END 2020-11-23 20:03 | disposition home or self-care (01) ==
LOC: MLB 11:15
DX: D72.10 Eosinophilia, unspecified (principal)
CPT/HCPCS: 36415; 85025

== ENCOUNTER 2021-01-20 13:38 | Outpatient (CLI) | payer OTHER ==
[2021-01-20 14:17] LABS: BASOPHILS % (AUTO) 0.4 % (0.0-2.0); EOSINOPHILS # (AUTO) 0.3 K/uL (0-0.4); EOSINOPHILS % (AUTO) 3.7 % (0.0-4.0); HEMATOCRIT 41.5 % (36-52); HEMOGLOBIN 13.9 g/dL (12.0-18.0); LYMPHOCYTES # (AUTO) 1.7 K/uL (2.0-11.5); LYMPHOCYTES % (AUTO) 19.2 % (20.5-51.1); MEAN CORPUSCULAR HEMOGLOBIN 27 pg (27-31); MEAN CORPUSCULAR HGB CONC 33 g/dL (33-37); MEAN CORPUSCULAR VOLUME 81.2 fL (80-94); MONOCYTES # (AUTO) 0.5 K/uL (0.8-1.0); MONOCYTES % (AUTO) 5.9 % (1.7-9.3); NEUTROPHILS # (AUTO) 6.3 K/uL (1.8-7.7); NEUTROPHILS % (AUTO) 70.8 % (42.2-75.2); PLATELET COUNT (AUTO) 275 K/uL (140-450); RED BLOOD CELL COUNT(AUTO) 5.12 MIL/uL (4.20-6.10); RED CELL DISTRIBUTION WIDTH 13.9 % (11.6-13.7); WHITE BLOOD COUNT (AUTO) 8.9 K/uL (4.8-10.8)
== END 2021-01-20 20:34 | disposition home or self-care (01) ==
LOC: MLB 13:38
DX: E11.69 Type 2 diabetes mellitus with other specified complication (principal); D72.10 Eosinophilia, unspecified
CPT/HCPCS: 36415; 83036; 85025

== ENCOUNTER 2023-02-11 10:49 | Outpatient (CLI) | payer OTHER ==
[~2023-02-11 10:49] MED LIST changes: -LOSA100T1 PO; +LOSA100T2 PO; +METF-346 PO; -METF500T PO
[2023-02-11 11:14] LABS: BASOPHILS # (AUTO) 0.1 K/uL (0.00-0.22); BASOPHILS % (AUTO) 0.9 % (0.0-2.0); EOSINOPHILS # (AUTO) 0.3 K/uL (0-0.4); EOSINOPHILS % (AUTO) 3.8 % (0.0-4.0); HEMATOCRIT 42.2 % (36-52); HEMOGLOBIN 14.3 g/dL (12.0-18.0); LYMPHOCYTES # (AUTO) 1.7 K/uL (2.0-11.5); LYMPHOCYTES % (AUTO) 21.3 % (20.5-51.1); MEAN CORPUSCULAR HEMOGLOBIN 27 pg (27-31); MEAN CORPUSCULAR HGB CONC 34 g/dL (33-37); MEAN CORPUSCULAR VOLUME 80.1 fL (80-94); MONOCYTES # (AUTO) 0.6 K/uL (0.8-1.0); NEUTROPHILS # (AUTO) 5.4 K/uL (1.8-7.7); PLATELET COUNT (AUTO) 236 K/uL (140-450); RED BLOOD CELL COUNT(AUTO) 5.26 MIL/uL (4.20-6.10); RED CELL DISTRIBUTION WIDTH 13.8 % (11.6-13.7); WHITE BLOOD COUNT (AUTO) 8.1 K/uL (4.8-10.8)
[2023-02-11 12:04] LABS: ALBUMIN 3.9 g/dL (3.4-5.0); CARBON DIOXIDE 29.2 mmol/L (21-32); CREATININE 0.8 mg/dL (0.6-1.3); POTASSIUM 4.2 mmol/L (3.5-5.1); THYROID STIMULATING HORMONE 1.55 uIU/mL (0.34-3.74); TOTAL BILIRUBIN 0.9 mg/dL (0.0-1.0)
[2023-02-11 12:10] LABS: APPEARANCE,URINE CLEAR (CLEAR); BILIRUBIN,URINE NEGATIVE (NEGATIVE); BLOOD, URINE NEGATIVE (NEGATIVE); COLOR,URINE YELLOW (YELLOW); LEUKOCYTE ESTERASE ,URINE NEGATIVE (NEGATIVE); NITRITE, URINE NEGATIVE (NEGATIVE); UGLUCOSE 3+ (NEGATIVE)
[2023-02-12 15:06] LABS: MICROALBUMIN, UR RANDOM 73.6 ug/mL (Not Estab.)
== END 2023-02-11 20:02 | disposition home or self-care (01) ==
LOC: MLB 10:49
PROVIDERS: ATTEND Internal Medicine
DX: Z12.5 Encounter for screening for malignant neoplasm of prostate (principal); Z13.0 Encounter for screening for diseases of the blood and blood-forming organs and certain disorders involving the immune mechanism; E78.5 Hyperlipidemia, unspecified; E11.9 Type 2 diabetes mellitus without complications; I10 Essential (primary) hypertension; R82.90 Unspecified abnormal findings in urine; E03.9 Hypothyroidism, unspecified; R80.9 Proteinuria, unspecified
CPT/HCPCS: 36415; 80053; 81003; 82043; 83036; 84154; 84443; 85025

== ENCOUNTER 2023-03-20 11:47 | Outpatient (CLI) | payer OTHER ==
[2023-03-20 12:49] LABS: APPEARANCE,URINE CLEAR (CLEAR); BILIRUBIN,URINE NEGATIVE (NEGATIVE); BLOOD, URINE NEGATIVE (NEGATIVE); COLOR,URINE YELLOW (YELLOW); LEUKOCYTE ESTERASE ,URINE NEGATIVE (NEGATIVE); NITRITE, URINE NEGATIVE (NEGATIVE); UGLUCOSE TRACE (NEGATIVE)
[2023-03-21 16:26] LABS: MICROALBUMIN, UR RANDOM 40.8 ug/mL (0.0-17.0)
== END 2023-03-20 19:59 | disposition home or self-care (01) ==
LOC: MLB 11:47
PROVIDERS: ATTEND Internal Medicine
DX: R80.9 Proteinuria, unspecified (principal)
CPT/HCPCS: 36415; 81003; 82043; 83520; 84550; 85651; 86038; 86140; 86430

== ENCOUNTER 2024-02-25 23:16 | Emergency (ER) | payer OTHER ==
[~2024-02-25] VITALS: Ht 162.6 cm; Wt 83.5 kg
[~2024-02-25 23:16] MED LIST changes: +LOSA-272 PO; -LOSA100T2 PO
[2024-02-25 23:33] VITALS: O2SAT 98
[2024-02-25 23:34] VITALS: BP 203/117; PULSE 94; RESP 16; TEMP 97.1; O2SAT 99
[2024-02-26] MEDS ORDERED: ALUMINUM HYD/MAG/SIMETHICONE 30 ML UDC ONE (00:30)
[2024-02-26] MEDS ORDERED: DICYCLOMINE HCL LIQUID 10 MG/5 ML UDC ONE (00:30)
[2024-02-26] MEDS: DICYCLOMINE HCL LIQUID 20 MG, ALUMINUM HYD/MAG/SIMETHICONE 30 ML, LIDOCAINE VISCOUS 2% ... PO ONE (00:35)
[2024-02-26 00:41] LABS: BASOPHILS # (AUTO) 0.1 K/uL (0.00-0.22); BASOPHILS % (AUTO) 0.9 % (0.0-2.0); EOSINOPHILS # (AUTO) 0.3 K/uL (0-0.4); HEMATOCRIT 48.2 % (36-52); HEMOGLOBIN 16.2 g/dL (12.0-18.0); LYMPHOCYTES # (AUTO) 2.7 K/uL (2.0-11.5); LYMPHOCYTES % (AUTO) 30.8 % (20.5-51.1); MEAN CORPUSCULAR HEMOGLOBIN 27 pg (27-31); MEAN CORPUSCULAR HGB CONC 34 g/dL (33-37); MONOCYTES # (AUTO) 0.8 K/uL (0.8-1.0); MONOCYTES % (AUTO) 8.8 % (1.7-9.3); NEUTROPHILS # (AUTO) 4.9 K/uL (1.8-7.7); NEUTROPHILS % (AUTO) 56.5 % (42.2-75.2); PLATELET COUNT (AUTO) 240 K/uL (140-450); RED BLOOD CELL COUNT(AUTO) 5.95 MIL/uL (4.20-6.10); RED CELL DISTRIBUTION WIDTH 13.6 % (11.6-13.7); WHITE BLOOD COUNT (AUTO) 8.7 K/uL (4.8-10.8)
[2024-02-26 00:53] LABS: ANION GAP 14.1 (8-16); CALCIUM 9.2 mg/dL (8.5-10.1); CARBON DIOXIDE 27.7 mmol/L (21-32); CREATININE 1.1 mg/dL (0.6-1.3); POTASSIUM 3.8 mmol/L (3.5-5.1)
[2024-02-26] MEDS: ONDANSETRON 4 MG/2 ML VIAL IVP ONE (00:55)
[2024-02-26] MEDS: MORPHINE SULFATE 4 MG/ML SYR IVP ONE (00:55)
[2024-02-26 00:56] LABS: INR 0.94 (0.8-1.2); PARTIAL THROMBOPLASTIN TIME 29.7 secs (22-35.6); PROTHROMBIN TIME 9.9 secs (10.8-13.4)
[2024-02-26 01:01] LABS: ALANINE AMINOTRANSFERASE 9 U/L (12-78); ALKALINE PHOSPHATASE 127 U/L (50-136); ASPARTATE AMINOTRANSFERASE 20 U/L (15-37); BILIRUBIN,DIRECT 0.1 mg/dL (0.0-0.3)
[2024-02-26 01:02] LABS: ALBUMIN 4.1 g/dL (3.4-5.0); TOTAL PROTEIN, SERUM 8.1 g/dL (6.4-8.2)
[2024-02-26] MEDS: LABETALOL 20 MG/4 ML VIAL IVP ONE (02:15)
[2024-02-26] MEDS ORDERED: ASPIRIN 325 MG TAB PO ONE (02:55)
[2024-02-26] MEDS ORDERED: HEPARIN PER PHARMACY MC PRN (03:05)
[2024-02-26] MEDS: ASPIRIN 325 MG TAB PO ONE (03:05)
[2024-02-26] MEDS: hePARIN / DEXT 5% PREMIX 250 ML IV SCH (04:11)
[2024-02-26 04:50] VITALS: BP 162/94; PULSE 78; RESP 14; TEMP 98; O2SAT 97
== END 2024-02-26 04:50 | disposition short-term general hospital (02) ==
LOC: MED 23:16
DX: I21.4 Non-ST elevation (NSTEMI) myocardial infarction (principal); E11.65 Type 2 diabetes mellitus with hyperglycemia; I16.1 Hypertensive emergency; Z79.4 Long term (current) use of insulin; Z79.899 Other long term (current) drug therapy
CPT/HCPCS: 36415; 71045; 71275; 80048; 80076; 83880; 84484; 85025; 85610; 85730; 93005; 96365; 96366; 96375; 99291; J1644; J3490; Q9967

== ENCOUNTER 2024-03-31 08:14 | Outpatient (CLI) | payer OTHER | END 2024-03-31 20:53 | disposition home or self-care (01) | LOC: MLB 08:14 | PROVIDERS: ATTEND Internal Medicine | DX: Z00.01 Encounter for general adult medical examination with abnormal findings (principal); I25.10 Atherosclerotic heart disease of native coronary artery without angina pectoris; E78.00 Pure hypercholesterolemia, unspecified; I10 Essential (primary) hypertension; E11.9 Type 2 diabetes mellitus without complications | CPT/HCPCS: 36415; 84153 ==

== ENCOUNTER 2024-05-04 13:52 | Outpatient (CLI) | payer OTHER | END 2024-05-04 22:02 | disposition home or self-care (01) | LOC: MLB 13:52 | PROVIDERS: ATTEND Internal Medicine | DX: D72.10 Eosinophilia, unspecified (principal) | CPT/HCPCS: 36415; 80076; 81001; 85025; 86704; 86706; 87086; 87522 ==